=== PATIENT | female | born 1955 | race Caucasian/White ===

== ENCOUNTER → 2016-12-13 | Outpatient (REF) | payer BC | LOC: M LAB REF 12:57 | PROVIDERS: ATTEND Internal Medicine | DX: N10 Acute pyelonephritis (principal); N39.0 Urinary tract infection, site not specified ==

== ENCOUNTER → 2017-12-19 | Outpatient (REF) | payer BC ==
[2017-12-19 18:42] LABS: IRON (FE) 52 UG/DL (50-170); PERCENT SATURATION 14.3 % (13.2-45.0); TOTAL IRON BINDING CAPACITY 363 UG/DL (250-450)
== END ==
LOC: M LAB REF 16:26
DX: R53.83 Other fatigue (principal)
CPT/HCPCS: 83550

== ENCOUNTER → 2017-12-26 | Outpatient (CLI) | payer BC | LOC: M RAD 07:28 | DX: R10.11 Right upper quadrant pain (principal); R94.5 Abnormal results of liver function studies | CPT/HCPCS: 76705 ==

== ENCOUNTER → 2018-01-06 | Outpatient (REF) | payer BC ==
[2018-01-07 08:18] LABS: CONTROL LINE HPYORI INT CTR LINE PRESENT; H PYLORI QUALITATIVE IgG NEGATIVE (NEGATIVE)
== END ==
LOC: M LAB REF 18:34
DX: R10.11 Right upper quadrant pain (principal); K29.00 Acute gastritis without bleeding
CPT/HCPCS: 86677

== ENCOUNTER → 2019-03-02 | Outpatient (REF) | payer BC ==
[~2019-03-02] MED LIST: EVEN500C2 PO; FERR325T16 PO; FISH100049 PO; GABA-1171; LORA-243 PO; METO5TAB2; MIDO2.5T PO; MONT10TA2; PANT40TA3; QVAR40AE13 INH; SUCR1TAB56; VALA1TAB2 PO; VITATAB11 PO
[2019-03-02 13:24] LABS: PERCENT SATURATION 39.5 % (13.2-45.0)
== END ==
LOC: M LAB REF 11:57
PROVIDERS: ATTEND Internal Medicine
DX: D50.9 Iron deficiency anemia, unspecified (principal)

== ENCOUNTER 2019-10-18 07:30 | Day surgery (SDC) | payer BC ==
[~2019-10-18] VITALS: Ht 157.5 cm; Wt 61.2 kg
[~2019-10-18 07:30] MED LIST changes: +NS 1,000 ML IV ONE; +PANT20TA2 PO; +QVAR40AE12 INH; -SUCR1TAB56; +SUCR1TAB56 PO; +VALA-3 PO; +VITACAP8 PO
[2019-10-18] MEDS ORDERED: PROPOFOL 200 MG/20 ML VIAL As Ordered ONE ×2 (09:24→09:26)
[2019-10-18] MEDS ORDERED: LIDOCAINE 2% INJ 100 MG/5 ML SDV (FOR ANES.) As Ordered ONE (09:24)
--- NOTE | 2019-10-18 09:31 | ROOR ---
Patient Name: Jennifer Lund Procedure Date: 10/18/2019 9:00 AM Date of : 1955 Age: 63 Room: [facility] Gender: Female Note Status: Finalized Procedure: Colonoscopy Indications: Screening for colorectal malignant neoplasm Providers: Dequan KABA MD Referring MD: Louise Lara DO Requesting Provider: Medicines: Monitored Anesthesia Care Complications: No immediate complications. Procedure: Pre-Anesthesia Assessment: - The heart rate, respiratory rate, oxygen saturations, blood pressure, adequacy of pulmonary ventilation, and response to care were monitored throughout the procedure. The Colonoscope was introduced through the anus and advanced to the terminal ileum, with identification of the appendiceal orifice and IC valve. The colonoscopy was performed without difficulty. The patient tolerated the procedure well. The quality of the bowel preparation was adequate. Findings: The perianal and digital rectal examinations were normal. (EXAM: Complete, PREP: Fair/Adequate) A 4 mm polyp was found in the splenic flexure. The polyp was sessile. The polyp was removed with a cold snare. Resection and retrieval were complete. Internal hemorrhoids were found during retroflexion. The hemorrhoids were small. The exam was otherwise without abnormality on direct and retroflexion views. Impression: - (EXAM: Complete, PREP: Fair/Adequate) - One 4 mm polyp at the splenic flexure, removed with a cold snare. Resected and retrieved. - Internal hemorrhoids. - The examination was otherwise normal on direct and retroflexion views. Recommendation: - Repeat colonoscopy in 5 years for surveillance. Dequan Kaba MD Dequan KABA MD 10/18/2019 9:31:08 AM Electronically signed by Dequan KABA MD Number of Addenda: 0 Note Initiated On: 10/18/2019 9:00 AM Estimated Blood Loss: Estimated blood loss: none.
[2019-10-18 09:50] VITALS: BP 103/56
== END 2019-10-18 10:02 | disposition home or self-care (01) ==
LOC: M OPP 07:30
PROVIDERS: ATTEND Internal Medicine Gastroenterology
DX: Z12.11 Encounter for screening for malignant neoplasm of colon (principal); D12.3 Benign neoplasm of transverse colon; K64.8 Other hemorrhoids; R12 Heartburn; J45.909 Unspecified asthma, uncomplicated; I95.9 Hypotension, unspecified; Z83.79 Family history of other diseases of the digestive system; Z80.2 Family history of malignant neoplasm of other respiratory and intrathoracic organs; Z91.011 Allergy to milk products; Z91.018 Allergy to other foods; Z79.899 Other long term (current) drug therapy

== ENCOUNTER 2019-11-18 18:50 | Emergency (ER) | payer BC ==
[~2019-11-18 18:50] MED LIST changes: -NS 1,000 ML IV ONE; -VALA1TAB2 PO; +VALA1TAB64 PO
[2019-11-18] MEDS ORDERED: DOXY100T27 (18:58)
[2019-11-18] MEDS ORDERED: PRED20TA (18:58)
[2019-11-18] MEDS ORDERED: NS 1,000 ML IV ONE (20:30)
[2019-11-18 21:02] LABS: INFLUENZA A AMPLIFICATION NEGATIVE (NEGATIVE); INFLUENZA B AMPLIFICATION NEGATIVE (NEGATIVE)
[2019-11-18 21:06] LABS: BASO % 0.2 % (0.0-1.0); HEMOGLOBIN 13.6 g/dl (12.0-15.5); LYMPH # 0.8 10^3/uL (1.5-5.0); LYMPH % 17.8 % (24.0-44.0); MEAN CORPUSCULAR HEMOGLOBIN 30.6 pg (27.0-33.0); MEAN CORPUSCULAR VOLUME 89.9 fl (80.0-96.0); MONO # 0.2 10^3/uL (0.0-0.8); MONO % 3.9 % (0.0-5.0); NEUTROPHILS # 3.4 10^3/uL (1.5-8.5); NEUTROPHILS % 77.6 % (36.0-66.0); PLATELET COUNT, AUTOMATED 251 10^3/uL (150-450); RED BLOOD COUNT 4.45 10^6/uL (4.00-5.40); WHITE BLOOD COUNT 4.4 10^3/uL (4.0-10.0)
[2019-11-18 21:16] LABS: ALBUMIN 3.7 GM/DL (3.2-5.2); BILIRUBIN,DIRECT 0.1 MG/DL (0.0-0.2); BILIRUBIN,TOTAL 0.4 MG/DL (0.2-1.0); TOTAL PROTEIN 6.9 GM/DL (6.4-8.2)
[2019-11-18] MEDS ORDERED: AUGM875T28 PO (23:18)
[2019-11-18] MEDS ORDERED: ACETAMINOPHEN 500 MG TAB PO ONE (23:30)
[2019-11-18] MEDS ORDERED: IBUPROFEN 600 MG TAB PO ONE (23:30)
[2019-11-19 00:13] VITALS: BP 121/81
--- NOTE | 2019-11-19 08:22 | REP ---
Chest x-ray: Two views. History: Abdominal pain . Comparison study: April 17 . Findings: The lungs are well inflated and free of infiltrate. The pleural angles are sharp. The heart size is normal. Pulmonary vasculature is not increased. No significant bony abnormality is seen. Impression: Negative chest x-ray. Electronically Signed by Juan Carlos Rivera MD 11/19/2019 08:13 A
== END 2019-11-19 00:14 | disposition home or self-care (01) ==
LOC: M ED 18:50
DX: J01.90 Acute sinusitis, unspecified (principal); T36.4X5A Adverse effect of tetracyclines, initial encounter; X58.XXXA Exposure to other specified factors, initial encounter; Y92.89 Other specified places as the place of occurrence of the external cause; J45.909 Unspecified asthma, uncomplicated; I95.9 Hypotension, unspecified; Z79.899 Other long term (current) drug therapy; Z91.018 Allergy to other foods

== ENCOUNTER → 2020-03-17 | Outpatient (REF) | payer BC ==
[~2020-03-17] MED LIST changes: +AUGM875T28 PO; +DOXY100T27; -MONT10TA2; +MONT10TA4; +PRED20TA; +VALA1TAB5 PO; -VALA1TAB64 PO
[2020-03-17 13:18] LABS: PERCENT SATURATION 28.9 % (13.2-45.0)
== END ==
LOC: M LAB REF 12:10
PROVIDERS: ATTEND Internal Medicine
DX: D50.9 Iron deficiency anemia, unspecified (principal)

== ENCOUNTER → 2020-09-07 | Outpatient (REF) | payer BC ==
[~2020-09-07] MED LIST changes: -PANT20TA2 PO; +PANT20TA6 PO; +PANT40TA29; -PANT40TA3
[2020-09-07 17:10] LABS: PERCENT SATURATION 40.1 % (13.2-45.0)
== END ==
LOC: M LAB REF 16:09
PROVIDERS: ATTEND Internal Medicine
DX: D50.9 Iron deficiency anemia, unspecified (principal)

== ENCOUNTER → 2021-03-20 | Outpatient (REF) | payer BC ==
[~2021-03-20] MED LIST changes: +FERR324T21 PO; -FERR325T16 PO; +MONT10TA10; -MONT10TA4
[2021-03-20 18:05] LABS: PERCENT SATURATION 31.8 % (13.2-45.0)
== END ==
LOC: M LAB REF 16:46
PROVIDERS: ATTEND Internal Medicine
DX: D50.9 Iron deficiency anemia, unspecified (principal)

== ENCOUNTER 2021-05-24 21:39 | Emergency (ER) | payer BC ==
[~2021-05-24] VITALS: Ht 157.5 cm; Wt 61.9 kg
[~2021-05-24 21:39] MED LIST changes: -BACT800T5 PO
[2021-05-24 23:17] LABS: BASO # 0.1 10^3/uL (0.0-0.2); BASO % 0.6 % (0.0-1.0); EOS # 0.1 10^3/uL (0.0-0.5); EOS % 0.7 % (0.0-3.0); HEMATOCRIT 37.1 % (36.0-47.0); HEMOGLOBIN 12.9 g/dl (12.0-15.5); LYMPH # 1.4 10^3/uL (1.5-5.0); LYMPH % 13.4 % (24.0-44.0); MEAN CORPUSCULAR HEMOGLOBIN 31.5 pg (27.0-33.0); MEAN CORPUSCULAR HGB CONC 34.8 g/dl (32.0-36.5); MEAN CORPUSCULAR VOLUME 90.7 fl (80.0-96.0); MONO # 1.1 10^3/uL (0.0-0.8); MONO % 10.4 % (2.0-8.0); NEUTROPHILS # 7.8 10^3/uL (1.5-8.5); NEUTROPHILS % 74.5 % (36.0-66.0); PLATELET COUNT, AUTOMATED 320 10^3/uL (150-450); RED BLOOD COUNT 4.09 10^6/uL (4.00-5.40); WHITE BLOOD COUNT 10.4 10^3/uL (4.0-10.0)
--- NOTE | 2021-05-24 23:31 | REPVR ---
PROCEDURE INFORMATION: Exam: XR Left Foot Exam date and time: 05/24/2021 10:56 PM Age: 65 years old Clinical indication: Pain; Foot; Left; Additional info: Cellulitis/pain TECHNIQUE: Imaging protocol: XR Left foot. Views: 3 or more views. COMPARISON: No relevant prior studies available. FINDINGS: Bones/joints: Hallux valgus deformity. Bone screw in the 2nd distal metatarsal. Plantar and forefoot calcaneal spur. Mild degenerative joint disease. Soft tissues: Plantar soft tissue swelling. IMPRESSION: Soft tissue swelling without bony erosion. Electronically signed by: Dequan Atwood On 05/24/2021 23:31:16 PM
[2021-05-24 23:39] LABS: ERYTHROCYTE SEDIMENTATION RATE 40 mm/hr (0-30)
[2021-05-24 23:43] LABS: ALBUMIN 3.8 GM/DL (3.2-5.2); ALT/SGPT 53 U/L (12-78); BILIRUBIN,DIRECT 0.2 MG/DL (0.0-0.2); BILIRUBIN,TOTAL 0.5 MG/DL (0.2-1.0); BLOOD UREA NITROGEN 13 MG/DL (7-18); C REACTIVE PROTEIN QUANTITATIV 1.93 MG/DL (0.00-0.30); CALCIUM LEVEL 9.1 MG/DL (8.8-10.2); CARBON DIOXIDE LEVEL 25 MEQ/L (21-32); CHLORIDE LEVEL 103 MEQ/L (98-107); CREATININE FOR GFR 0.65 MG/DL (0.55-1.30); GLOMERULAR FILTRATION RATE > 60.0 (>45); GLUCOSE, FASTING 99 MG/DL (70-100); POTASSIUM SERUM 3.9 MEQ/L (3.5-5.1); SODIUM LEVEL 134 MEQ/L (136-145)
[2021-05-25] MEDS ORDERED: VANCOMYCIN HCL 1,000 MG, VIAL MATE ADAPTER 1 EACH in NS 250 ML IV ONE (00:55)
[2021-05-25] MEDS ORDERED: KETOROLAC 30 MG/ML 1ML VIAL IV ONE (00:55)
[2021-05-25] MEDS ORDERED: ONDANSETRON 4MG/2ML VIAL IV ONE (00:55)
[2021-05-25] MEDS ORDERED: BACT800T5 PO (04:09)
[2021-05-25 05:00] VITALS: BP 95/50
--- NOTE | 2021-05-25 05:37 | ECGEPIP ---
[facility] - ED Test Date: 2021-05-24 Pat Name: JADE JC Department: Room: - Gender: Female [employer]: sr : 1955 Requested By: CARLY Hurt Order Number: [id number] Reading MD: Chris Sanches Measurements Intervals [place] Rate: 91 P: 38 WV: 140 QRS: 74 QRSD: 78 T: 47 QT: 342 QTc: 420 Interpretive Statements Normal sinus rhythm Septal infarct , age undetermined SIMILAR TO 04/17/15 Electronically Signed on 05-25-2021 5:37:29 EDT by Chris Sanches
== END 2021-05-25 05:08 | disposition home or self-care (01) ==
LOC: M ED 21:39
DX: L03.116 Cellulitis of left lower limb (principal); J45.909 Unspecified asthma, uncomplicated; K21.9 Gastro-esophageal reflux disease without esophagitis; E73.9 Lactose intolerance, unspecified; Z79.899 Other long term (current) drug therapy; Z91.018 Allergy to other foods; Z88.8 Allergy status to other drugs, medicaments and biological substances
CPT/HCPCS: 73630; 80048; 80076; 85025; 85652; 86140; 87040; 93005; 93041; 94760; 96365; 96366; 96375; 99285; J1885; J2405; J3370

== ENCOUNTER → 2021-05-24 | Outpatient (REF) | payer BC ==
[~2021-05-24] MED LIST changes: +BACT800T5 PO
== END ==
LOC: M LAB REF 16:06
PROVIDERS: ATTEND Internal Medicine
DX: L03.119 Cellulitis of unspecified part of limb (principal)